=== PATIENT | female | born 1985 | race Caucasian/White ===

== ENCOUNTER 2024-12-29 12:38 | Day surgery (SDC) | payer OTHER ==
[2024-12-29] MEDS: IRON SUCROSE INJECTION 200 MG in SODIUM CHLORIDE 100 ML IVPB ONE (13:14)
[2024-12-29 14:20] VITALS: BP 124/67; PULSE 67; RESP 18; TEMP 98.1
== END 2024-12-29 14:41 | disposition home or self-care (01) ==
LOC: FINFUSION 12:38 → FM/S 12:39 → FINFUSION 14:41
PROVIDERS: ATTEND Obstetrics & Gynecology
PROC: 3E033GC Introduction of Other Therapeutic Substance into Peripheral Vein, Percutaneous Approach (ICD-10-PCS; principal; 2024-12-29)
DX: D50.9 Iron deficiency anemia, unspecified (principal)
CPT/HCPCS: 96365; J1756

== ENCOUNTER 2025-01-05 12:54 | Day surgery (SDC) | payer OTHER ==
[2025-01-05] MEDS: IRON SUCROSE INJECTION 200 MG in SODIUM CHLORIDE 100 ML IVPB ONE (13:30)
[2025-01-05 13:35] VITALS: RESP 16; TEMP 97.8
[2025-01-05 14:32] VITALS: BP 121/72; PULSE 71
== END 2025-01-05 14:32 | disposition home or self-care (01) ==
LOC: FINFUSION 12:54 → FM/S 12:57 → FINFUSION 14:32
PROVIDERS: ATTEND Obstetrics & Gynecology
PROC: 3E033GC Introduction of Other Therapeutic Substance into Peripheral Vein, Percutaneous Approach (ICD-10-PCS; principal; 2025-01-05)
DX: D50.9 Iron deficiency anemia, unspecified (principal)
CPT/HCPCS: 96365; J1756

== ENCOUNTER 2025-01-11 13:14 | Day surgery (SDC) | payer OTHER ==
[2025-01-11] MEDS: IRON SUCROSE INJECTION 200 MG in SODIUM CHLORIDE 100 ML IVPB ONE (13:28)
[2025-01-11 14:25] VITALS: BP 126/79; PULSE 82; RESP 18; TEMP 98.5
== END 2025-01-11 14:25 | disposition home or self-care (01) ==
LOC: FINFUSION 13:14 → FM/S 13:15 → FINFUSION 14:25
PROVIDERS: ATTEND Obstetrics & Gynecology
PROC: 3E033GC Introduction of Other Therapeutic Substance into Peripheral Vein, Percutaneous Approach (ICD-10-PCS; principal; 2025-01-11)
DX: D50.9 Iron deficiency anemia, unspecified (principal)
CPT/HCPCS: 96365; J1756

== ENCOUNTER 2025-01-23 10:36 | Inpatient (IN) | payer OTHER ==
[2025-01-23 11:51] LABS: ABSOLUTE IMMATURE GRANULOCYTES 0.06 x10^3/uL (0.0-0.031); BASOPHILS # 0.02 x10^3/uL (0.01-0.08); EOSINOPHIL % 0.1 % (0.7-5.8); EOSINOPHILS # 0.01 x10^3/uL (0.04-0.36); HEMATOCRIT 35.4 % (34.1-44.9); HEMOGLOBIN 10.7 g/dL (11.2-15.7); MCHC 30.2 g/dl (32.2-35.5); MEAN CELL VOLUME 72.4 fl (79.4-94.8); MEAN PLT VOLUME 10.8 fl (9.4-12.3); MONOCYTE # 0.36 x10^3/uL (0.24-0.86); MONOCYTE % 3.5 % (4.7-12.5); PLATELET COUNT # 212 x10^3/uL (182-369); RDW 17.4 % (12.1-16.8)
[2025-01-23 11:55] LABS: INR 1.11 (0.83-1.09); PROTHROMBIN TIME (PATIENT) 12.1 SEC (9.7-13.0)
[2025-01-23 11:58] LABS: ACTIVATED PTT 30.8 SECONDS (25.2-36.5)
[2025-01-23 12:09] LABS: CHLORIDE 105 mmol/L (98-107); SODIUM 138 mmol/L (136-145)
[2025-01-23 12:11] LABS: ANION GAP 7 mmol/L (4-13); BLOOD UREA NITROGEN 7.6 mg/dL (7-18); CALCIUM 9.1 mg/dL (8.5-10.1); CO2 26 mmol/L (21-32); GLUCOSE,RANDOM 109 mg/dL (74-106)
[2025-01-23 12:15] LABS: CREATININE 0.5 mg/dL (0.55-1.3)
[2025-01-23] MEDS: ELECTROLYTE-148 SOLN 1,000 ML IV SCH (12:20)
[2025-01-23] MEDS ORDERED: AMPICILLIN SODIUM 2 GM VIAL ONE (12:39)
[2025-01-23] MEDS ORDERED: OXYTOCIN 20 UNITS in 0.9% NS 20 UNIT/1,000 ML INFUS.BAG IV ONE ×2 (12:40→20:22)
[2025-01-23] MEDS: AMPICILLIN - 2 GM in SODIUM CHLORIDE 100 ML IVPB ONE (12:52)
[2025-01-23] MEDS: OXYTOCIN 30 UNITS in 0.9% NS 30 UNIT/500 ML INFUS.BAG IVPB SCH (12:55)
[2025-01-23 13:54] VITALS: BMI 36.2
[2025-01-23] MEDS ORDERED: FENTANYL/BUPIVACAINE/NS/PF - PCEA - 50 ML DISP.SYRIN EP ONE ×2 (15:45→19:22)
[2025-01-23] MEDS ORDERED: AMPICILLIN SODIUM 1 GM VIAL ONE ×2 (15:46→20:06)
[2025-01-23] MEDS: AMPICILLIN - 1 GM in SODIUM CHLORIDE 100 ML IVPB SCH (16:00)
[2025-01-23] MEDS: FENTANYL/BUPIVACAINE/NS/PF - PCEA - 50 ML DISP.SYRIN EP SCH (16:07)
[2025-01-23] MEDS ORDERED: NALOXONE HCL 0.4 MG/ML VIAL IVPUSH PRN (16:12)
[2025-01-23] MEDS: OXYTOCIN 20 UNITS in 0.9% NS 20 UNIT/1,000 ML INFUS.BAG IV SCH (20:40)
[2025-01-23] MEDS: METHYLERGONOVINE MALEATE 0.2 MG/1 ML AMP IM PRN (20:43)
[2025-01-23] MEDS ORDERED: BISACODYL 10 MG SUPP.RECT RC PRN (20:53)
[2025-01-23] MEDS ORDERED: BENZOCAINE 20% 57 GM BOTTLE TP PRN (20:53)
[2025-01-23] MEDS ORDERED: BENZOCAINE 28 GM HEMORRHOIDAL OINTMENT TP PRN (20:53)
[2025-01-23] MEDS ORDERED: ACETAMINOPHEN 325 MG TABLET (FP) PO PRN (20:53)
[2025-01-23] MEDS ORDERED: WITCH HAZEL 50% (TUCKS) 40 PAD/JAR PAD TP PRN (20:53)
[2025-01-23 22:17] LABS: CORD BASE EXCESS -3.4 mmol/L (0-2); CORD BASE EXCESS -5.5 mmol/L (0-2); CORD HCO3 19.9 mmHg (20-29); CORD HCO3 20.6 mmHg (20-29); CORD PCO2 34.5 mmHg (30-78); CORD PCO2 38.9 mmHg (30-78); CORD pH 7.327 (7.14-7.44); CORD pH 7.394 (7.14-7.44)
[2025-01-24] MEDS: IBUPROFEN 600 MG TABLET (FP) PO PRN (00:56)
[2025-01-24 09:34] LABS: ABSOLUTE IMMATURE GRANULOCYTES 0.04 x10^3/uL (0.0-0.031); BASOPHILS # 0.02 x10^3/uL (0.01-0.08); EOSINOPHIL % 0.5 % (0.7-5.8); EOSINOPHILS # 0.05 x10^3/uL (0.04-0.36); HEMATOCRIT 31.9 % (34.1-44.9); HEMOGLOBIN 9.6 g/dL (11.2-15.7); MCHC 30.1 g/dl (32.2-35.5); MEAN PLT VOLUME 10.8 fl (9.4-12.3); MONOCYTE # 0.52 x10^3/uL (0.24-0.86); PLATELET COUNT # 169 x10^3/uL (182-369); RDW 17.1 % (12.1-16.8)
[2025-01-24 21:44] VITALS: TEMP 98.3
[2025-01-25] MEDS: SENNOSIDES/DOCUSATE COMBO (SENNA PLUS) TABLET (UD) PO PRN (06:33)
[2025-01-25 09:10] VITALS: BP 108/79; PULSE 66; RESP 20
== END 2025-01-25 13:30 | disposition home or self-care (01) | DRG 560 ==
LOC: JLDR 10:36 → J3W 23:16
PROVIDERS: ADMIT Obstetrics & Gynecology; ATTEND Obstetrics & Gynecology
PROC: 10E0XZZ Delivery of Products of Conception, External Approach (ICD-10-PCS; principal; 2025-01-23)
DX: O48.0 Post-term pregnancy (principal); Z3A.40 40 weeks gestation of pregnancy; O99.824 Streptococcus B carrier state complicating childbirth; O13.4 Gestational [pregnancy-induced] hypertension without significant proteinuria, complicating childbirth; O99.02 Anemia complicating childbirth; Z37.0 Single live birth
CPT/HCPCS: 36415; 36600; 59409; 80048; 82803; 85025; 85610; 85730; 86780; 86922